=== PATIENT | male | born 1960 ===

== ENCOUNTER 2020-10-23 05:51 | Day surgery (SDC) | payer OTHER ==
[~2020-10-23 05:51] MED LIST: ADULT LOW DOSE81 M1 PO; GLIPIZIDE XL10 MG PO; INVOKANA300 MG PO; METFORMIN HCL1000 M2 PO; NORVASC10 MG PO; QUINAPRIL HCL40 MG PO; ZOCOR40 MG PO
== END 2020-10-23 10:35 | disposition home or self-care (01) ==
LOC: CIR.AMB 05:51
PROVIDERS: ATTEND Surgery Surgery of the Hand
DX: M65.842 Other synovitis and tenosynovitis, left hand (principal); Z20.822 Contact with and (suspected) exposure to COVID-19